=== PATIENT | female | born 1960 | race Caucasian/White ===

== ENCOUNTER 2018-08-12 18:03 | Emergency (ER) | payer BC ==
[2018-08-12 18:40] VITALS: BP 137/73
--- NOTE | 2018-08-12 19:29 | UC ---
Complaint Female HPI - HPI Summary HPI Summary: 2-3 WEEKS OF BILATERAL LOW BACK PAIN. THOUGHT SHE WAS GETTING BETTER WITH REST AND OTC MEDICATION BUT THEN SYMPTOMS WORSENED AGAIN RECENTLY. SHE NOW HAS A SENSATION OF NUMBNESS ON HER LEFT SIDE WITH URINARY URGENCY AND SOME FREQUENCY. NO LOSS OF BOWEL OR BLADDER CONTROL. NO SADDLE ANESTHESIA. SHE DENIES ANY DYSURIA OR HEMATURIA. ADMITS SHE HAS POORLY CONTROLLED DIABETES. LAST A1C A FEW MONTHS AGO WAS 10.3. SHE DOES NOT CHECK HER BLOOD GLUCOSE AT HOME. - History Of Current Complaint Chief Complaint: UCBackPain Stated Complaint: LOWER BACK PAIN, URGENT URINATION Time Seen by Provider: 08/12/18 18:57 Hx Obtained From: Patient Hx Last Menstrual Period: ~1 month ago Onset/Duration: Gradual Onset, Lasting Weeks, Still Present Timing: Constant Severity Initially: Moderate Severity Currently: Moderate Pain Intensity: 6 Pain Scale Used: 0-10 Numeric Aggravating Factor(s): Nothing Alleviating Factor(s): Nothing Associated Signs And Symptoms: Positive: Back Pain. Negative: Fever, Vaginal Discharge, Nausea - Allergies/Home Medications Allergies/Adverse Reactions: Allergies Allergy/AdvReac Type Severity Reaction Status Date / Time Penicillins Allergy Severe Hives Verified 08/12/18 18:40 cephalexin [From Keflex] Allergy Rash Verified 08/12/18 18:40 PMH/Surg Hx/FS Hx/Imm Hx Endocrine History: Diabetes - UNCONTROLLED, Hypothyroidism - Surgical History Surgical History: None - Family History Known Family History: Positive: Cardiac Disease, Diabetes - Social History Alcohol Use: Rare Substance Use Type: None Smoking Status (MU): Former Smoker Review of Systems All Other Systems Reviewed And Are Negative: Yes Constitutional: Positive: Negative Respiratory: Positive: Negative Cardiovascular: Positive: Negative Gastrointestinal: Positive: Abdominal Pain Genitourinary: Positive: Frequency, Urgency. Negative: Dysuria, Vaginal/Penile Discharge Physical Exam Triage Information Reviewed: Yes Appearance: Well-Appearing, No Pain Distress, Well-Nourished Vital Signs: Initial Vital Signs Temp 98.5 F 08/12/18 18:35 Pulse 77 08/12/18 18:35 Resp 16 08/12/18 18:35 BP 137/73 08/12/18 18:35 Pulse Ox 99 08/12/18 18:35 Laboratory Tests 08/12/18 18:59 POC Urine Color Dark yellow POC Urine Clarity Clear POC Urine pH 5.0 POC Ur Specif Goessel 1.025 POC Urine Protein Negative POC Ur Glucose (UA) 1+ A POC Urine Ketones Trace A POC Urine Blood Negative POC Urine Nitrite Negative POC Urine Bilirubin Negative POC Urine Urobilinogen 0.2 POC U Leukocyte Esteras Trace A Vital Signs Reviewed: Yes Eyes: Positive: Conjunctiva Clear ENT: Positive: Hearing grossly normal, Pharynx normal Neck: Positive: Supple, Nontender, No Lymphadenopathy Respiratory Exam: Normal Cardiovascular Exam: Normal Abdomen Description: Positive: Nontender, Soft. Negative: CVA Tenderness (R), CVA Tenderness (L), Distended, Guarding Musculoskeletal: Positive: No Edema Neurological: Positive: Alert Psychological: Positive: Age Appropriate Behavior Skin: Negative: Rashes Complaint Female Dx - Course Course Of Treatment: PATIENT WITH A NONSPECIFIC CONSTELLATION OF SYMPTOMS INCLUDING LOW BACK PAIN, URINARY URGENCY, SLIGHT NUMBNESS TO THE SKIN OVER HER LEFT HIP AREA. SHE DENIES ANY SHORTNESS OF BREATH, FEVER OR NAUSEA. URINE DIP IS NOT CONVINCING FOR UTI. POC GLUCOSE 192. GIVEN THAT HER SYMPTOMS ARE NOT ENTIRELY CONVINCING OF A UTI AND HER URINE DIP DOES NOT ENTIRELY SUPPORT THIS DIAGNOSIS THE PATIENT IS RELUCTANT TO TAKE ANTIBIOTICS WHICH I THINK IS REASONABLE. URINE WILL BE SENT FOR CULTURE. PATIENT HAS BEEN OFFERED LAB WORK TODAY TO REASSESS HER THYROID, A1C, METABOLIC PANEL AND BLOOD COUNT. PATIENT DECLINED THIS WELL. STATES SHE WOULD PREFER TO FOLLOW THIS UP WITH DR. CROFT. SHE WILL GO HOME WITH CAREFUL OBSERVATION. I HAVE ADVISED THAT SHE STAY WELL-HYDRATED, WATCH HER DIET AND CHECK HER MORNING FASTING GLUCOSE LEVELS. SHE WILL CALL DR. CROFT FOR A FOLLOW-UP APPOINTMENT. LOW THRESHOLD FOR GOING TO THE EMERGENCY ROOM IF HER SYMPTOMS WORSEN. - Differential Dx/Diagnosis Provider Diagnosis: Hyperglycemia Discharge - Sign-Out/Discharge Documenting (check all that apply): Patient Departure All imaging exams completed and their final reports reviewed: No Studies - Discharge Plan Condition: Stable Disposition: HOME Patient Education Materials: Diabetic Hyperglycemia (ED) Referrals: Teagan Croft MD [Primary Care Provider] - 2 Days Additional Instructions: YOUR SYMPTOMS MAY BE DUE TO HYPERGLYCEMIA/UNCONTROLLED DIABETES. YOUR FINGERSTICK GLUCOSE TODAY WAS 192. URINE TEST TODAY SHOWED TRACE BACTERIA. GIVEN YOUR VAGUE SYMPTOMS IT IS NOT ALL THAT CONVINCING FOR UTI. WILL HOLD OFF ON ANTIBIOTICS FOR NOW AND SEND THE URINE FOR CULTURE. WE WILL CALL YOU IF YOU NEED TO BE TREATED. YOU HAVE DECLINED LAB WORK TODAY IN FAVOR OF HAVING IT DONE WITH DR. CROFT WHICH I THINK IS REASONABLE. CALL HER OFFICE TOMORROW TO SCHEDULE A FOLLOW-UP APPOINTMENT FOR SOON POSSIBLE. BE SURE TO STAY WELL- HYDRATED AND WATCH YOUR DIET. I RECOMMEND YOU CHECK YOUR FASTING BLOOD GLUCOSE EVERY MORNING AND KEEP A LOG OF THIS TO TAKE YOUR NEXT APPOINTMENT. GO TO THE ER WITHOUT FAIL IF YOU HAVE ANY WORSENING SYMPTOMS. - Billing Disposition and Condition Condition: STABLE Disposition: Home
== END 2018-08-12 19:59 | disposition home or self-care (01) ==
LOC: UCEAST 18:03
DX: E11.65 Type 2 diabetes mellitus with hyperglycemia (principal); M54.5 Low back pain; E03.9 Hypothyroidism, unspecified
CPT/HCPCS: 81003; 87086; 99211; G0463